=== PATIENT | female | born 1970 | race Caucasian/White ===

== ENCOUNTER 2022-06-19 17:01 | Emergency (ER) | payer SELFPAY ==
[~2022-06-19] VITALS: Ht 162.6 cm; Wt 88.0 kg
[2022-06-19 17:26] VITALS: BP 147/94
[2022-06-19] MEDS ORDERED: NAPR-54 PO (19:52)
[2022-06-19] MEDS ORDERED: AMOX1TAB8 PO (19:52)
[2022-06-19 20:12] VITALS: BP 138/82
--- NOTE | 2022-06-19 20:12 | NUR ---
Patient discharged with v/s stable. Written and verbal after care instructions given and explained. Patient alert, oriented and verbalized understanding of instructions. Ambulatory with steady gait. All questions addressed prior to discharge. ID band removed. Patient advised to follow up with PMD. Rx of Amox-clav and Naproxen given. Patient educated on indication of medication including possible reaction and side effects. Opportunity to ask questions provided and answered.
== END 2022-06-19 20:12 | disposition home or self-care (01) ==
LOC: MED 17:01
DX: K04.7 Periapical abscess without sinus (principal)
CPT/HCPCS: 70450; 70486; 99284

== ENCOUNTER 2022-12-04 10:42 | Emergency (ER) | payer MEDICAID, OTHER ==
[~2022-12-04] VITALS: Ht 160 cm; Wt 86.2 kg
[~2022-12-04 10:42] MED LIST: AMOX1TAB8 PO; NAPR-54 PO
[2022-12-04 10:50] VITALS: BP 139/91
[2022-12-04] MEDS ORDERED: IBUPROFEN 400 MG TAB PO ONE (11:15)
--- NOTE | 2022-12-04 11:59 | NUR ---
52 YO FEMALE BIBDexter PRESENTS TO THE ED WITH COMPLAINT OF SHOULDER PAIN RADIATING TO RIGHT SIDE OF CHEST WALL TO BACK. PATIENT STATES PAIN STARTED ON FRIDAY AROUND 1800. PATIENT 12/28 PAIN DENIES ANY PMH AND ALLERGIES
--- NOTE | 2022-12-04 12:25 | NUR ---
PATIENT TAKEN TO CT
[2022-12-04] MEDS ORDERED: NAPR-1704 PO (13:36)
== END 2022-12-04 14:15 | disposition home or self-care (01) ==
LOC: MED 10:42
DX: S22.42XA Multiple fractures of ribs, left side, initial encounter for closed fracture (principal); S20.212A Contusion of left front wall of thorax, initial encounter; M25.512 Pain in left shoulder; X58.XXXA Exposure to other specified factors, initial encounter; Y93.89 Activity, other specified; Y92.89 Other specified places as the place of occurrence of the external cause; Y99.8 Other external cause status
CPT/HCPCS: 71101; 71250; 99284; Q0092

== ENCOUNTER 2023-04-06 13:43 | Emergency (ER) | payer OTHER ==
[~2023-04-06] VITALS: Ht 160 cm; Wt 87.5 kg
[~2023-04-06 13:43] MED LIST changes: +NAPR-1704 PO
[2023-04-06 14:21] VITALS: BP 128/72; PULSE 88; RESP 18; TEMP 98.5; O2SAT 97
[2023-04-06] MEDS ORDERED: methocarbamoL 500 MG TAB PO SCH (14:40)
[2023-04-06] MEDS ORDERED: KETOROLAC 30 MG/ML VIAL IM ONE (14:40)
[2023-04-06] MEDS ORDERED: METH-1681 PO (15:19)
[2023-04-06] MEDS ORDERED: LID5T TP (15:19)
[2023-04-06] MEDS ORDERED: IBUP-2213 PO (15:19)
[2023-04-06 15:32] VITALS: BP 128/72; PULSE 88; RESP 18; TEMP 98.5; O2SAT 97
== END 2023-04-06 15:32 | disposition home or self-care (01) ==
LOC: MED 13:43
DX: S39.012A Strain of muscle, fascia and tendon of lower back, initial encounter (principal); Z79.899 Other long term (current) drug therapy; X58.XXXA Exposure to other specified factors, initial encounter; Y93.89 Activity, other specified; Y92.89 Other specified places as the place of occurrence of the external cause; Y99.8 Other external cause status
CPT/HCPCS: 96372; 99283; J1885

== ENCOUNTER 2023-11-11 12:00 | Emergency (ER) | payer OTHER ==
[~2023-11-11] VITALS: Ht 160 cm; Wt 84.4 kg
[~2023-11-11 12:00] MED LIST changes: +IBUP-2213 PO; +LID5T TP; +METH-1681 PO; +NAPR-337 PO; -NAPR-54 PO
[2023-11-11 12:40] VITALS: BP 109/75; PULSE 79; RESP 18; TEMP 97.9; O2SAT 98
[2023-11-11] MEDS ORDERED: METH-1681 PO (13:36)
[2023-11-11] MEDS ORDERED: NAPR-337 PO (13:36)
[2023-11-11] MEDS ORDERED: LID5T TP (13:36)
[2023-11-11] MEDS: KETOROLAC 30 MG/ML VIAL IM ONE (14:01)
== END 2023-11-11 14:10 | disposition home or self-care (01) ==
LOC: MED 12:00
DX: S46.812A Strain of other muscles, fascia and tendons at shoulder and upper arm level, left arm, initial encounter (principal); M75.32 Calcific tendinitis of left shoulder; Z79.899 Other long term (current) drug therapy; X58.XXXA Exposure to other specified factors, initial encounter; Y93.89 Activity, other specified; Y92.89 Other specified places as the place of occurrence of the external cause; Y99.8 Other external cause status
CPT/HCPCS: 73030; 96372; 99283; J1885